=== PATIENT | male | born 1970 | race Caucasian/White ===

== ENCOUNTER 2018-06-13 10:43 | Emergency (ER) ==
[2018-06-13 10:49] VITALS: BP 156/105; TEMP 98.4; BMI 43.0
[2018-06-13] MEDS ORDERED: ROCEPHIN IM STA (11:04)
[2018-06-13] MEDS ORDERED: LIDOCAINE HCL 1% SDV IM STA (11:04)
--- NOTE | 2018-06-13 11:07 | ED.PDOC ---
General ED Provider: Dr. [facility]-ER Chief Complaint: Earache Stated Complaint: i had cold symptoms and both ears hurts--my right ear is better but my left ear still hurts Time Seen by Physician: 11:05 Mode of Arrival: Walk-In Information Source: Patient, Family Exam Limitations: No limitations Primary Care Provider: MICHAEL PEREIRA Nursing and Triage Documentation Reviewed and Agree: Yes Does patient meet sepsis criteria?: No System Inflammatory Response Syndrome: Not Applicable Sepsis Protocol: For patient's 13 years and over: Temp is 96.8 and below OR 101 and greater Pulse >90 BPM Resp >20/minute Acutely Altered Mental Status Are patient's symptoms suggestive of a new infection, such as: -Pneumonia -Skin, Soft Tissue -Endocarditis -UTI -Bone, Joint Infection -Implantable Device -Acute Abdominal Infection -Wound Infection -Meningitis -Blood Stream Catheter Infection -Unknown EENT Complaint Exam - Ear Complaint/Exam Onset/Duration: one week Initial Severity: Mild Current Severity: Moderate Character: Reports: Dull pain, Aching pain, Throbbing pain Alleviating: Reports: None Associated Signs and Symptoms: Reports: Hearing loss, URI symptoms Vesicles to External Pinna: No Vesicles to Tragus: No Tympanic Membrane: Erythema, Dullness Differential Diagnoses: Otitis Media Review of Systems - Review Of Systems Constitutional: Reports: No symptoms Eyes: Reports: No symptoms Ears, Nose, Mouth, Throat: Reports: Ear pain Respiratory: Reports: No symptoms Cardiac: Reports: No symptoms GI: Reports: No symptoms : Reports: No symptoms Musculoskeletal: Reports: No symptoms Skin: Reports: No symptoms Neurological: Reports: No symptoms Endocrine: Reports: No symptoms Hematologic/Lymphatic: Reports: No symptoms All Other Systems: Reviewed and Negative Past Medical History - Past Medical History Previously Healthy: No Endocrine: Reports: Unknown Cardiovascular: Reports: Unknown Respiratory: Reports: Unknown Hematological: Reports: Unknown Gastrointestinal: Reports: Unknown Genitourinary: Reports: Unknown Neuro/Psych: Reports: Unknown Musculoskeletal: Reports: Unknown Cancer: Reports: Unknown - Surgical History General Surgical History: Reports: Unknown - Family History Family History: Reports: Unknown - Social History Smoking Status: Never smoker Hx Substance Use: No Alcohol Screening: Occasionally Physical Exam - Physical Exam Appearance: Well-appearing, No pain distress, Well-nourished Pain Distress: Mild Eyes: MAREK, EOMI, Conjunctiva clear ENT: Nose normal, Oropharynx normal, Erythema Neck: Supple Respiratory: Airway patent, Breath sounds clear, Breath sounds equal, Respirations nonlabored Cardiovascular: RRR, Pulses normal, No rub, No murmur GI/: Soft Musculoskeletal: Normal strength, ROM intact, No edema, No calf tenderness Skin: Warm, Dry, Normal color Neurological: Sensation intact, Motor intact, Reflexes intact, Cranial nerves intact, Alert, Oriented Psychiatric: Affect appropriate, Mood appropriate Critical Care Note - Critical Care Note Total Time (mins): 0 Course - Course Orders, Labs, Meds: Orders Category Date Time Status Ceftriaxone Sodium [Rocephin] MEDS 06/13/18 11:04 Stat 1 gm IM ONCE STA Lidocaine HCl/Pf [Lidocaine HCl 1% Sdv] MEDS 06/13/18 11:04 Stat 2.1 ml IM ONCE STA Vital Signs: Temp Pulse Resp BP Pulse Ox 06/13/18 10:45 98.4 F 79 20 156/105 H 94 L Departure - Departure Time of Disposition: 11:07 Disposition: HOME SELF-CARE Discharge Problem: Ear problem Instructions: Ear Infection (ED) Condition: Good Pt referred to PMD for follow-up: Yes IPMP verified?: No Additional Instructions: cipiro 500mg bid x 7 da---percocet 5mg q 6hrs prn pain #6---f/u with dr blue office tomorrow to recheck ear Allergies/Adverse Reactions: Allergies hydrocodone Adverse Reaction (Verified 06/13/18 10:51) Home Medications: Ambulatory Orders Lansoprazole [Prevacid 24Hr] 15 mg PO DAILY 08/28/14 Levothyroxine Sodium [Synthroid] 125 mcg PO QDAC 08/28/14 Abiraterone Acetate [Zytiga] 1,000 mg PO BEDTIME 06/13/18 Allopurinol 300 mg PO DAILY 06/13/18 Amoxicillin/Potassium Clav [Augmentin 875-125 mg Tab] 1 tab PO Q12HR 06/13/18 Indomethacin 50 mg PO TID 06/13/18 Lovastatin 10 mg PO DAILY 06/13/18 Prednisone 20 mg PO BID 06/13/18 Ropinirole HCl [Requip] 1 mg PO BEDTIME 06/13/18 Disposition Discussed With: Patient, Family
== END 2018-06-13 11:39 | disposition home or self-care (01) ==
LOC: ED 10:43
DX: H66.90 Otitis media, unspecified, unspecified ear (principal)
CPT/HCPCS: 96372; 99282